=== PATIENT | male | born 1960 | race Caucasian/White ===

== ENCOUNTER 2022-12-25 06:04 | Day surgery (SDC) | payer OTHER ==
[2022-12-25] MEDS ORDERED: Midazolam 1 MG/ML 2 ML SDV IV ONE (06:05)
[2022-12-25] MEDS ORDERED: Propofol 200 MG/20 ML SDV IV ONE (06:05)
[2022-12-25] MEDS ORDERED: Sodium Chloride 0.9% 10 ML Syringe FLUSH PRN (06:15)
[2022-12-25] MEDS ORDERED: Lactated Ringers 1,000 ML IV SCH (06:15)
[2022-12-25] MEDS ORDERED: Simethicone Drops 40 MG/0.6 ML 30 ML Bottle PO ONE (07:41)
== END 2022-12-25 09:10 | disposition home or self-care (01) ==
LOC: FB.SDS 06:04
PROVIDERS: ATTEND Surgery
DX: Z12.11 Encounter for screening for malignant neoplasm of colon (principal); D12.0 Benign neoplasm of cecum; D12.2 Benign neoplasm of ascending colon; K64.4 Residual hemorrhoidal skin tags; J44.9 Chronic obstructive pulmonary disease, unspecified; K21.9 Gastro-esophageal reflux disease without esophagitis; Z88.0 Allergy status to penicillin; Z86.010 Personal history of colon polyps; Z79.899 Other long term (current) drug therapy; Z98.890 Other specified postprocedural states; Z87.891 Personal history of nicotine dependence
CPT/HCPCS: 00811; 88305; A9270-GY; J2250; J2704; J7120